=== PATIENT | male | born 1975 | race Caucasian/White ===

== ENCOUNTER 2017-07-04 18:48 | Emergency (ER) | payer OTHER, BC ==
[2017-07-04 19:04] VITALS: BP 132/82
[2017-07-04] MEDS ORDERED: HYDROmorphone 0.5 MG/0.5 ML SYRINGE IVPUSH STA (19:05)
[2017-07-04] MEDS ORDERED: Ondansetron 4 MG/2 ML SDV IVPUSH ONE (19:06)
[2017-07-04] MEDS ORDERED: Sodium Chloride 0.9% 1,000 ML IV SCH (19:15)
[2017-07-04] MEDS ORDERED: Sodium Chloride 0.9% 10 ML Syringe FLUSH PRN (19:32)
[2017-07-04] MEDS ORDERED: Iopamidol 612 MG/ML 150 ML Bottle IVPUSH ONE (19:32)
--- NOTE | 2017-07-04 19:49 | EDM.PDOC ---
ED HPI GENERAL MEDICAL PROBLEM - General Chief Complaint: Trauma Stated Complaint: FELL OFF HORSE Time Seen by Provider: 07/04/17 18:53 Source of Information: Reports: Patient History Limitations: Reports: No Limitations - History of Present Illness INITIAL COMMENTS - FREE TEXT/NARRATIVE: The patient states that he was bucked off a horse around 17:30, landing on his head and right shoulder. He was not wearing a helmet. The fall was unwitnessed. The patient states that he lost consciousness, but he does not know how long he was out. He presents with pain to his neck and right shoulder. He states that he had a headache initially, that has since subsided. The patient states that he also has right rib pain after landing on a saddle horn last week. He did not seek medical attention for that injury. The patient's PCP is Dr. Dyer at the [facility]. Right Shoulder Pain Score (Numeric/FACES): 9 - Related Data Allergies Allergy/AdvReac Type Severity Reaction Status Date / Time melon Allergy Bronchospas Verified 07/04/17 19:05 ms tree nut Allergy Bronchospas Verified 07/04/17 19:05 ms Home Meds: Home Meds . [No Known Home Meds] 07/04/17 [History] Past Medical History HEENT History: Reports: Allergic Rhinitis - Past Surgical History HEENT Surgical History: Reports: Oral Surgery (3 wisdom teeth extracted) Neurological Surgical History: Reports: Other (See Below) (Left ulnar nerve relocation) Musculoskeletal Surgical History: Reports: Arthroscopic Procedure (Right knee arthroscopically) Social & Family History - Tobacco Use Smoking Status *Q: Never Smoker Tobacco Use Within Last Twelve Months: Smokeless Tobacco (Chews 1 can/week since 9 years old) - Caffeine Use Caffeine Use: Reports: Coffee - Alcohol Use Alcohol Use History: Yes Days Per Week of Alcohol Use: 1 Number of Drinks Per Day: 2 Total Drinks Per Week: 2 Alcohol Use Frequency: Socially - Recreational Drug Use Recreational Drug Use: No - Living Situation & Occupation Living situation: Reports: , with Spouse, with Family (2 kids, 1 grandson ) Occupation: Employed (calibration technician) Review of Systems - Review of Systems Review Of Systems: ROS reveals no pertinent complaints other than HPI. ED EXAM, GENERAL - Physical Exam Exam: See Below Exam Limited By: No Limitations General Appearance: Alert, WD/WN, Mild Distress (Uncomfortable) Eye Exam: Bilateral Eye: Normal Inspection Ears: Normal External Exam, Normal Canal, Hearing Grossly Normal, Normal TMs Nose: Normal Inspection, No Blood Throat/Mouth: Normal Inspection, Normal Lips, Normal Voice, No Airway Compromise Head: Atraumatic, Normocephalic Neck: Other (Cervical collar kept on) Respiratory/Chest: No Respiratory Distress, Lungs Clear, Normal Breath Sounds, No Accessory Muscle Use, Chest Non-Tender Cardiovascular: Normal Peripheral Pulses, Regular Rate, Rhythm, No Edema, No Gallop, No JVD, No Murmur, No Rub Peripheral Pulses: 4+: Radial (L), Radial (R) GI/Abdominal: Normal Bowel Sounds, Soft, Non-Tender, No Organomegaly, No Distention, No Abnormal Bruit, No Mass (Male) Exam: Deferred Rectal (Males) Exam: Deferred Back Exam: Normal Inspection, Full Range of Motion, Other (The patient reports pain WITHOUT tenderness just superior to the right SI joint area. No visible abnormality to the area, such as swelling, erythema, ecchymosis, or abrasion.) Extremities: No Pedal Edema, Normal Capillary Refill, Other (Abrasion and mild swelling to the superior aspect of the right shoulder. No other visible or palpable abnormality to suggest dislocation or fracture. There is considerable tenderness to the area of abrasion. No tenderness to palpation along the right clavicle.) Neurological: Alert, Oriented, CN II-XII Intact, Normal Cognition, No Motor/ Sensory Deficits Psychiatric: Normal Affect Skin Exam: Warm, Dry, Intact, Normal Color, No Rash Course - Vital Signs Last Recorded V/S: Last Vital Signs Temp 37.3 C 07/04/17 19:03 Pulse 88 07/04/17 19:03 Resp 20 07/04/17 19:03 BP 132/82 07/04/17 19:03 Pulse Ox 100 07/04/17 19:03 - Orders/Labs/Meds Orders: Active Orders 24 hr Category Date Time Status Shoulder Comp Rt [CR] Stat Exams 07/04/17 19:04 Taken UA W/MICROSCOPIC [URIN] Stat Lab 07/04/17 21:19 Ordered Sodium Chloride 0.9% [Normal Saline] 1,000 ml Med 07/04/17 19:15 Active IV ASDIRECTED Sodium Chloride 0.9% [Saline Flush] Med 07/04/17 19:32 Active 10 ml FLUSH ONETIME PRN DME for Discharge [COMM] Stat Oth 07/04/17 20:45 Ordered Medication Orders Sodium Chloride (Normal Saline) 1,000 mls @ 150 mls/hr IV ASDIRECTED SG Last Admin: 07/04/17 19:18 Dose: 150 mls/hr Sodium Chloride (Saline Flush) 10 ml FLUSH ONETIME PRN PRN Reason: IV FLUSH Last Admin: 07/04/17 19:44 Dose: 10 ml Labs: Laboratory Tests 07/04/17 07/04/1718 Range/Units 19:05 19:05 19:05 WBC 9.14 H (4.23-9.07) K/mm3 RBC 4.85 (4.63-6.08) M/mm3 Hgb 15.3 (13.7-17.5) gm/L Hct 43.7 (40.1-51.0) % MCV 90.1 (79.0-92.2) fl MCH 31.5 (25.7-32.2) pg MCHC 35.0 (32.2-35.5) g/dl RDW Std Deviation 40.0 (35.1-43.9) fL Plt Count 261 (163-337) K/mm3 MPV 9.6 (9.4-12.3) fl Neutrophils % (Manual) 83 H (40-60) % Band Neutrophils % 0 (0-10) % Lymphocytes % (Manual) 15 L (20-40) % Atypical Lymphs % 0 % Monocytes % (Manual) 1 L (2-10) % Eosinophils % (Manual) 0 L (0.8-7.0) % Basophils % (Manual) 1 (0.2-1.2) Platelet Estimate Adequate Plt Morphology Comment Normal RBC Morph Comment Normal PT 10.9 (9.5-12.1) SECONDS INR 1.00 APTT 26 (24-31) SECONDS Sodium 138 (136-145) mEq/L Potassium 3.8 (3.5-5.1) mEq/L Chloride 103 (98-107) mEq/L Carbon Dioxide 27 (21-32) mEq/L Anion Gap 11.8 (5-15) BUN 9 (7-18) mg/dL Creatinine 1.2 (0.7-1.3) mg/dL Est Cr Clr Drug Dosing 93.24 mL/min Estimated GFR (MDRD) > 60 (>60) mL/min BUN/Creatinine Ratio 7.5 L (14-18) Glucose 98 (74-106) mg/dL Calcium 8.9 (8.5-10.1) mg/dL Total Bilirubin 1.0 (0.2-1.0) mg/dL AST 28 (15-37) U/L ALT 41 (16-63) U/L Alkaline Phosphatase 45 L (46-116) U/L Total Protein 7.3 (6.4-8.2) g/dl Albumin 4.5 (3.4-5.0) g/dl Globulin 2.8 gm/dL Albumin/Globulin Ratio 1.6 (1-2) Urine Color (Yellow) Urine Appearance (Clear) Urine pH (5.0-8.0) Ur Specific [place] (1.005-1.030) Urine Protein (Negative) Urine Glucose (UA) (Negative) Urine Ketones (Negative) Urine Occult Blood (Negative) Urine Nitrite (Negative) Urine Bilirubin (Negative) Urine Urobilinogen (0.2-1.0) Ur Leukocyte Esterase (Negative) Urine RBC (0-5) /hpf Urine WBC (0-5) /hpf Ur Epithelial Cells (0-5) /hpf Urine Bacteria (FEW) /hpf Urine Mucus (FEW) /hpf 07/04/17 Range/Units 21:19 WBC (4.23-9.07) K/mm3 RBC (4.63-6.08) M/mm3 Hgb (13.7-17.5) gm/L Hct (40.1-51.0) % MCV (79.0-92.2) fl MCH (25.7-32.2) pg MCHC (32.2-35.5) g/dl RDW Std Deviation (35.1-43.9) fL Plt Count (163-337) K/mm3 MPV (9.4-12.3) fl Neutrophils % (Manual) (40-60) % Band Neutrophils % (0-10) % Lymphocytes % (Manual) (20-40) % Atypical Lymphs % % Monocytes % (Manual) (2-10) % Eosinophils % (Manual) (0.8-7.0) % Basophils % (Manual) (0.2-1.2) Platelet Estimate Plt Morphology Comment RBC Morph Comment PT (9.5-12.1) SECONDS INR APTT (24-31) SECONDS Sodium (136-145) mEq/L Potassium (3.5-5.1) mEq/L Chloride (98-107) mEq/L Carbon Dioxide (21-32) mEq/L Anion Gap (5-15) BUN (7-18) mg/dL Creatinine (0.7-1.3) mg/dL Est Cr Clr Drug Dosing mL/min Estimated GFR (MDRD) (>60) mL/min BUN/Creatinine Ratio (14-18) Glucose (74-106) mg/dL Calcium (8.5-10.1) mg/dL Total Bilirubin (0.2-1.0) mg/dL AST (15-37) U/L ALT (16-63) U/L Alkaline Phosphatase (46-116) U/L Total Protein (6.4-8.2) g/dl Albumin (3.4-5.0) g/dl Globulin gm/dL Albumin/Globulin Ratio (1-2) Urine Color Yellow (Yellow) Urine Appearance Clear (Clear) Urine pH 6.0 (5.0-8.0) Ur Specific [place] 1.010 (1.005-1.030) Urine Protein Negative (Negative) Urine Glucose (UA) Negative (Negative) Urine Ketones Negative (Negative) Urine Occult Blood Negative (Negative) Urine Nitrite Negative (Negative) Urine Bilirubin Negative (Negative) Urine Urobilinogen 0.2 (0.2-1.0) Ur Leukocyte Esterase Negative (Negative) Urine RBC Not seen (0-5) /hpf Urine WBC Not seen (0-5) /hpf Ur Epithelial Cells Not seen (0-5) /hpf Urine Bacteria Rare (FEW) /hpf Urine Mucus Not seen (FEW) /hpf Meds: Medications Generic Name Dose Route Start Last Admin Trade Name Freq PRN Reason Stop Dose Admin Sodium Chloride 1,000 mls @ 150 mls/hr 07/04/17 19:15 07/04/17 19:18 Normal Saline IV 150 mls/hr ASDIRECTED SG Administration Sodium Chloride 10 ml 07/04/17 19:32 07/04/17 19:44 Saline Flush FLUSH 10 ml ONETIME PRN Administration IV FLUSH Discontinued Medications Generic Name Dose Route Start Last Admin Trade Name Urielq PRN Reason Stop Dose Admin Hydromorphone HCl 1 mg 07/04/17 19:05 07/04/17 19:20 Dilaudid IVPUSH 07/04/17 19:06 1 mg ONETIME STA Administration Iopamidol 150 ml 07/04/17 19:32 07/04/17 19:44 Isovue-300 (61%) IVPUSH 07/04/17 19:33 125 ml ONETIME ONE Administration Ondansetron HCl 4 mg 07/04/17 19:06 07/04/17 19:19 Zofran IVPUSH 07/04/17 19:07 4 mg ONETIME ONE Administration - Re-Assessments/Exams Free Text/Narrative Re-Assessment/Exam: 07/04/17 19:42 3-view radiographs of the right shoulder appear to demonstrate a first-degree A- C separation. No fracture or dislocation identified. Formal read per the radiologist pending. 07/04/17 20:12 CT of the head without contrast is read by Dr. Giron as: 1. Sinus findings which are likely incidental. 2. No acute intracranial abnormality is seen. No acute skull fracture is seen. 07/04/17 20:16 CT of the cervical spine without contrast is read by Dr. Giron as: 1. Old ununited avulsion fracture off the T1 spinous process. 2. Nothing acute is seen on CT study of the cervical spine. CT of the chest with IV contrast is read by Dr. Giron as: 1. Nothing acute is seen on CT study of the chest. CT of the abdomen and pelvis with IV contrast is read by Dr. Giron as: 1. Incidental findings. Nothing acute is appreciated on CT study of the abdomen and pelvis. 07/04/17 20:39 The patient's cervical collar was opened, and his posterior cervical spine examined. No tenderness, and no pain with full ROM. The cervical collar was removed. 07/04/17 22:14 Test results discussed with the patient and his . As above, I suspect that the patient has a first-degree A-C separation of the right shoulder, but, otherwise, his workup is negative. Clinically, the patient does not have a concussion. His right arm has been placed into a sling. I will have him wear that for the next couple of days, after which I would like him to start increasing his right shoulder ROM. I would like him to take [id number] ibuprofen or Aleve as needed for pain, and I will prescribe some [place] in addition. I will refer him to Dr. Florentino for follow-up for his shoulder. Departure - Departure Time of Disposition: 22:16 Disposition: Home, Self-Care 01 Condition: Fair Clinical Impression: Fall from horse, Separation of right acromioclavicular joint, type 1 - Discharge Information Referrals: Dinora Dyer DO [Primary Care Provider] - Del Florentino MD [Physician] - Forms: ED Department Discharge Additional Instructions: You were seen in the emergency room after being bucked off a horse, injuring your head, neck, right shoulder, and right lower back. Workup in the ER included blood work, a urinalysis, x-rays of your right shoulder, a CT scan of your head, a CT scan of your cervical spine, and a CT scan of your chest, abdomen, and pelvis. The x-ray of your right shoulder suggests a first-degree A-C separation, but no broken bones. The remainder of your workup was unremarkable. No internal injuries. Your right arm has been placed into a sling. We recommend that you wear this for a couple of days, then start moving your shoulder through a normal range of motion. Take [id number] ibuprofen or Aleve, with food, as needed for discomfort. You may take 1-2 tablets of the narcotic pain reliever [place] up to every 6 hours , for pain not relieved by ibuprofen or Aleve. If you take [place], do not drive or operate heavy machinery for 10 hours afterwards. [place] may cause constipation , so consider taking a stool softener. Stay well hydrated for at least 48 hours. Follow-up with the Orthopedic Surgeon Dr. Florentino this coming week. If any other problems, please do not hesitate to return to the ER. - My Orders Last 24 Hours: My Active Orders 07/04/17 19:04 Shoulder Comp Rt [CR] Stat 07/04/17 19:15 Sodium Chloride 0.9% [Normal Saline] 1,000 ml IV ASDIRECTED 07/04/17 19:32 Sodium Chloride 0.9% [Saline Flush] 10 ml FLUSH ONETIME PRN 07/04/17 20:45 DME for Discharge [COMM] Stat 07/04/17 21:19 UA W/MICROSCOPIC [URIN] Stat - Assessment/Plan Last 24 Hours: My Active Orders 07/04/17 19:04 Shoulder Comp Rt [CR] Stat 07/04/17 19:15 Sodium Chloride 0.9% [Normal Saline] 1,000 ml IV ASDIRECTED 07/04/17 19:32 Sodium Chloride 0.9% [Saline Flush] 10 ml FLUSH ONETIME PRN 07/04/17 20:45 DME for Discharge [COMM] Stat 07/04/17 21:19 UA W/MICROSCOPIC [URIN] Stat
--- NOTE | 2017-07-04 20:06 | CT ---
Head CT Technique: Multiple axial sections through the brain were obtained. Intravenous contrast was not utilized. Comparison: No previous intracranial imaging. Findings: Ventricles along with basal cisterns and sulci over convexities are within normal limits for the patient's age. No abnormal parenchymal densities are seen. No evidence of intracranial hemorrhage. No midline shift or mass effect is seen. Bone window settings were reviewed which shows no acute calvarial abnormality. Mucosal thickening is seen within posterior left ethmoid sinuses and within the left side of the sphenoid sinus. This is most likely pre-existing and chronic. Impression: 1. Sinus findings which are likely incidental. 2. No acute intracranial abnormality is seen. No acute skull fracture is seen. Diagnostic code #2
--- NOTE | 2017-07-04 20:13 | CT ---
CT chest Technique: Multiple axial sections through the chest were obtained. Intravenous contrast was utilized. Comparison: No prior chest imaging. Findings: Mediastinum and hilar regions appear within normal limits. No axillary adenopathy is seen. No pericardial fluid is seen. Lungs are clear. No pulmonary contusion, pneumothorax or pleural effusion is seen. No discrete rib fracture is seen on bone window settings. Vertebral body heights and disc spaces are maintained within the thoracic spine. Sagittal view shows the sternum to appear intact. Impression: 1. Nothing acute is seen on CT study of the chest. Diagnostic code #1 CT abdomen and pelvis Technique: Multiple axial sections were obtained from above the dome of the diaphragm inferiorly through the pubic symphysis. Intravenous contrast was utilized. No oral contrast has been given. Delayed images were obtained through the bladder. Comparison: No previous abdominal imaging. Findings: Liver shows no focal parenchymal abnormality. Spleen appears within normal limits. Adrenal glands show no nodule. Pancreas is within normal limits. Kidneys show symmetric contrast enhancement without hydronephrosis or mass. Gallbladder contains no calcified gallstones. Aorta shows no aneurysmal dilatation. No retroperitoneal adenopathy or mesenteric abnormalities are seen. No pelvic mass or adenopathy is seen. No free fluid or inflammatory change is seen. Appendix is seen which is normal. Delayed images shows contrast within the distal ureters as well as within the bladder with no contrast extravasation. Bone window settings were reviewed which shows no compression deformity of the lumbar spine. No fracture is appreciated within the pelvis or within the hips. Slight degenerative sclerosis is seen within the sacroiliac joints. Impression: 1. Incidental findings. Nothing acute is appreciated on CT study of the abdomen and pelvis. Diagnostic code #2
--- NOTE | 2017-07-04 20:14 | CT ---
CT cervical spine Technique: Multiple axial sections were obtained through the cervical spine from above C1 inferiorly to the bottom of T2. Reconstructed sagittal and coronal images were reviewed. Findings: Old ununited fracture is seen within the tip of the spinous process of T1. Vertebral bodies and posterior arches are intact. No fracture is seen. No abnormal subluxation is seen on the reconstructed sagittal images. No bony central or bony neural foraminal stenosis is seen. Impression: 1. Old ununited avulsion fracture off the T1 spinous process. 2. Nothing acute is seen on CT study of the cervical spine. Diagnostic code #2
--- NOTE | 2017-07-05 07:08 | CR ---
Right shoulder: Three views of the right shoulder were obtained. Comparison: No prior shoulder exam. Acromioclavicular joint and glenohumeral joints appear within normal limits. No fracture, dislocation or other bony abnormality is seen. Impression: 1. No abnormality is seen on three-view right shoulder study. Diagnostic code #1
== END 2017-07-04 22:25 | disposition home or self-care (01) ==
LOC: JD.ED 18:48
DX: S43.101A Unspecified dislocation of right acromioclavicular joint, initial encounter (principal); V80.010A Animal-rider injured by fall from or being thrown from horse in noncollision accident, initial encounter; Z91.018 Allergy to other foods
CPT/HCPCS: 36415; 70450; 71260; 72125; 73030; 74177; 80053; 81001; 85025; 85610; 85730; 96361; 96374; 96375; 99285; J1170; J2405; J7040; J7050; Q9967; 99284